=== PATIENT | male | born 1990 | race African-American/Black ===

== ENCOUNTER 2018-06-30 17:36 | Emergency (ER) | payer OTHER ==
[~2018-06-30] VITALS: Ht 180.3 cm; Wt 63.5 kg
[2018-06-30] MEDS ORDERED: PROAIR HFA8.5 GM INH (18:58)
[2018-06-30] MEDS ORDERED: FLONASE 0.05%50 MCG NASAL (20:06)
[2018-06-30] MEDS ORDERED: TESSALON PERLE100 MG PO (20:06)
[2018-06-30] MEDS ORDERED: VENTOLIN HFA 1818 GM INH (20:06)
[2018-06-30] MEDS ORDERED: PREDNISONE 10 M10 MG PO (20:06)
[2018-06-30] MEDS ORDERED: CLARITIN10 MG PO (20:06)
[2018-06-30 20:31] VITALS: BP 130/75
== END 2018-06-30 20:32 | disposition home or self-care (01) ==
LOC: ER 17:36
DX: J45.901 Unspecified asthma with (acute) exacerbation (principal)

== ENCOUNTER 2019-07-07 19:17 | Emergency (ER) | payer OTHER ==
[~2019-07-07] VITALS: Ht 182.9 cm; Wt 63.5 kg
[~2019-07-07 19:17] MED LIST: CLARITIN10 MG PO; FLONASE 0.05%50 MCG NASAL; PREDNISONE 10 M10 MG PO; PROAIR HFA8.5 GM INH; TESSALON PERLE100 MG PO; VENTOLIN HFA 1818 GM INH
[2019-07-07] MEDS ORDERED: PROMETH-CODEIN 65 ML PO (20:49)
[2019-07-07] MEDS ORDERED: PREDNISONE 20 M20 MG PO (20:49)
[2019-07-07 21:06] VITALS: BP 127/85
== END 2019-07-07 20:55 | disposition home or self-care (01) ==
LOC: ER 19:17
DX: J45.909 Unspecified asthma, uncomplicated (principal); Z79.899 Other long term (current) drug therapy